=== PATIENT | male | born 1950 | race Caucasian/White ===

== ENCOUNTER 2016-11-03 12:52 | Emergency (ER) | payer OTHER ==
[~2016-11-03] VITALS: Ht 175.3 cm; Wt 91.4 kg
[2016-11-03 12:56] VITALS: TEMP 97.8
[2016-11-03 13:21] LABS: BASO # 0.1 (0.0-0.2); BASO % 0.6 % (0.0-2.0); EOS % 0.5 % (0-4.0); GRAN # 7.3 (1.4-6.5); GRAN % 83.1 % (42.2-75.2); HEMATOCRIT 47.4 % (42.0-52.0); LYMPH # 0.7 (1.2-3.4); LYMPH % 8.3 % (20.0-51.0); MEAN CELL VOLUME 94 fl (80.0-100.0); MEAN CORPUSCULAR HEMOGLOBIN 32 pg (27.0-31.0); MEAN CORPUSCULAR HGB CONC 34 g/dl (33.0-37.0); MONO # 0.6 (0.1-0.6); MONO % 6.9 % (1.7-9.3); PLATELET COUNT 243 K/mm3 (130-400); RED BLOOD COUNT 5.02 M/mm3 (4.20-5.60); REDCELL DISTRIBUTION WIDTH-CV 12.6 % (11.5-14.5); WHITE BLOOD COUNT 8.8 K/mm3 (4.8-10.8)
[2016-11-03 13:31] LABS: ADJUSTED CALCIUM 9.4 mg/dL (8.4-10.2); ALANINE AMINOTRANSFERASE 34 U/L (21-72); ALBUMIN 4.1 gm/dL (3.5-5.0); ALKALINE PHOSPHATASE 69 U/L (50-136); ANION GAP 9 mmol/L (7-16); BILIRUBIN,TOTAL 1.3 mg/dL (0.0-1.0); BLOOD UREA NITROGEN 22 mg/dL (9-20); CALCIUM 9.5 mg/dL (8.4-10.2); CARBON DIOXIDE 26 mmol/L (22-30); CHLORIDE 104 mmol/L (98-107); CREATININE, serum 1.09 mg/dL (0.66-1.25); GLUCOSE 106 mg/dL (74-106); LIPASE 79 U/L (23-300); POTASSIUM 4.7 mmol/L (3.4-5.0); SODIUM 138 mmol/L (137-145); TOTAL PROTEIN 7.3 gm/dL (6.4-8.2)
[2016-11-03] MEDS ORDERED: ANTIVERT 25MG25 MG PO (13:33)
[2016-11-03] MEDS ORDERED: MIRAPEX0.25 MG PO (13:34)
[2016-11-03 13:35] LABS: PH 5 (5-8); SQUAMOUS EPITHELIAL None Seen /hpf; URINE APPEARANCE Clear; URINE BACTERIA None Seen /hpf; URINE BILIRUBIN Negative (NEGATIVE); URINE BLOOD Negative (NEGATIVE); URINE COLOR Yellow; URINE GLUCOSE Negative (NEGATIVE); URINE KETONE Negative (NEGATIVE); URINE RBC 0-2 /hpf; URINE UROBILINOGEN Negative (NEGATIVE); URINE WBC 0-2 /hpf
[2016-11-03] MEDS ORDERED: LIPITOR 10MG10 MG PO (13:35)
[2016-11-03] MEDS ORDERED: MOBIC 7.5MG7.5 MG PO (13:35)
[2016-11-03 13:44] LABS: TROPONIN-I < 0.012 ng/mL (0.000-0.034)
[2016-11-03] MEDS ORDERED: VALIUM 5MG T5 MG/TAB PO (14:53)
[2016-11-03 15:16] VITALS: BP 124/79; PULSE 61
== END 2016-11-03 15:39 | disposition home or self-care (01) ==
LOC: COL.ER 12:52
PROVIDERS: Emergency Medicine
DX: R42 Dizziness and giddiness (principal)

== ENCOUNTER → 2016-11-21 | Outpatient (CLI) | payer OTHER ==
[~2016-11-21] MED LIST: ANTIVERT 25MG25 MG PO; LIPITOR 10MG10 MG PO; MIRAPEX0.25 MG PO; MOBIC 7.5MG7.5 MG PO; VALIUM 5MG T5 MG/TAB PO
== END ==
LOC: COL.RAD 09:36
DX: K76.0 Fatty (change of) liver, not elsewhere classified (principal); K80.20 Calculus of gallbladder without cholecystitis without obstruction; R27.0 Ataxia, unspecified

== ENCOUNTER → 2017-11-18 | Outpatient (CLI) | payer BC | LOC: COL.RAD 12:04 | DX: M19.011 Primary osteoarthritis, right shoulder (principal); S46.811A Strain of other muscles, fascia and tendons at shoulder and upper arm level, right arm, initial encounter; S43.491A Other sprain of right shoulder joint, initial encounter ==

== ENCOUNTER 2023-04-08 21:39 | Emergency (ER) | payer MEDICARE, BC ==
[~2023-04-08] VITALS: Ht 180.3 cm; Wt 95.5 kg
[~2023-04-08 21:39] MED LIST changes: +NEURONTIN100 MG/CAP PO
[2023-04-08] MEDS ORDERED: NS 1,000 ML IV ONE (23:30)
[2023-04-08 23:39] LABS: HEMOGLOBIN 14.5 g/dl (13.5-18.0); MEAN CELL VOLUME 96 fl (80.0-100.0); MEAN CORPUSCULAR HEMOGLOBIN 32 pg (27-31); MEAN CORPUSCULAR HGB CONC 34 g/dl (33.0-37.0); MEAN PLATELET VOLUME 9.1 fl (7.4-10.4); PLATELET COUNT 226 K/mm3 (130-400); RED BLOOD COUNT 4.48 M/mm3 (4.20-5.60); REDCELL DISTRIBUTION WIDTH-CV 12.7 % (11.5-14.5)
[2023-04-08 23:51] LABS: ALANINE AMINOTRANSFERASE 13 U/L (0-55); ALBUMIN 3.2 gm/dL (3.4-4.8); ALKALINE PHOSPHATASE 74 U/L (40-150); ANION GAP 10 mmol/L (7-16); AST,SGOT 31 U/L (5-34); BILIRUBIN,TOTAL 2.2 mg/dL (0.2-1.2); BLOOD UREA NITROGEN 24 mg/dL (8-26); C-REACTIVE PROTEIN 20.17 mg/dL (0.00-0.50); CALCIUM 9.8 mg/dL (8.4-10.2); CARBON DIOXIDE 24 mmol/L (23-31); CHLORIDE 103 mmol/L (98-107); CREATININE, serum 1.49 mg/dL (0.72-1.25); GLUCOSE 103 mg/dL (70-99); POTASSIUM 4.1 mmol/L (3.5-4.5); SODIUM 137 mmol/L (136-145); TOTAL PROTEIN 6.6 gm/dL (6.2-8.1)
[2023-04-08 23:57] LABS: TROPONIN-I < 0.010 ng/mL (0.00-0.033)
[2023-04-09 00:13] LABS: HYPOCHROMIA 1+; LYMPHOCYTE 5 % (20.0-51.0); NEUTROPHILS 82 % (42.0-75.2); PLATELET ESTIMATE NORMAL (NORMAL)
[2023-04-09] MEDS ORDERED: fentaNYL 50 MCG/ML 2 ML VIAL IV ONE (00:45)
[2023-04-09 01:06] LABS: COLLECTION METHOD CLEAN CATCH
[2023-04-09 01:17] LABS: URINE APPEARANCE Clear (CLEAR/HAZY); URINE COLOR Yellow (YELLOW)
[2023-04-09 01:18] LABS: MUCOUS Present (NOT PRESENT); PH 5.5 (5.0-8.5); SQUAMOUS EPITHELIAL 0-2 /hpf (0-10); URINE BACTERIA Rare /hpf (NONE SEEN); URINE BLOOD Negative (NEGATIVE); URINE GLUCOSE Negative (NEGATIVE); URINE KETONE TRACE (NEGATIVE); URINE NITRATE Negative (NEGATIVE); URINE PROTEIN(semi-quant) Negative (BEGATIVE); URINE RBC 0-2 /hpf (0-2); URINE UROBILINOGEN 0.2 E.U/dL (0.2-1.0)
[2023-04-09 01:43] VITALS: TEMP 98.2
[2023-04-09 03:05] VITALS: BP 154/88; PULSE 90
== END 2023-04-09 03:07 | disposition home or self-care (01) ==
LOC: COL.ER 21:39
PROVIDERS: Nurse Practitioner
DX: R50.9 Fever, unspecified (principal); R11.2 Nausea with vomiting, unspecified
CPT/HCPCS: J3010; J7030

== ENCOUNTER 2023-12-30 11:54 | Outpatient (CLI) | payer MEDICARE, BC ==
[~2023-12-30] VITALS: Ht 180.3 cm; Wt 91.9 kg
[~2023-12-30 11:54] MED LIST changes: +ARICEPT 5MG PO; +B-12 500 MCG PO; +CENTRUM MEN'S PO; +FOLIC ACID0.8 MG PO; +MAGNESIUM CITR100 MG PO; +MASON NATURAL2000 IU PO; +MIRAPEX 1MG PO; +PRILOSEC 20MG20 MG PO; +ZETIA 10MG TAB10 MG PO; +ZOLOFT 25MG25 MG PO
[2023-12-30] MEDS ORDERED: ZOCOR 20MG20 MG PO (12:09)
[2023-12-30] MEDS ORDERED: FLOMAX 0.40.4 MG/CAP PO (12:10)
[2023-12-30 12:14] VITALS: BP 131/74; PULSE 56; TEMP 97.5
[2023-12-30 13:41] VITALS: BP 124/73; PULSE 51
[2023-12-30 13:45] VITALS: BP 119/68; PULSE 50
[2023-12-30 14:00] VITALS: BP 123/71; PULSE 50
[2023-12-30 14:15] VITALS: BP 104/61; PULSE 52
[2023-12-30 14:30] VITALS: BP 111/60; PULSE 53
--- NOTE | 2023-12-30 14:49 | NUR ---
DC instructions reviewed with pt and . Both express understanding. Pt has slept during recovery period, has woken easily when staff enters room. Continues to deny headache or other concerns. Bandaids remains clean, dry and intact. Pt is assisted out to 's car by wheelchair. Free of complaints at discharge.
[2023-12-30 15:18] LABS: TOTAL PROTEIN,CSF 45 mg/dL (15-45)
[2023-12-30 16:10] LABS: CSF APPEARANCE CLEAR; CSF COLOR COLORLESS; CSF RBC 238 /mm3 (0-0)
[2023-12-30 16:15] LABS: CSF MONONUCLEAR 0 % (70-100); CSF POLYMORPHONUCLEAR 100 % (0-6)
[2024-01-02 05:38] LABS: CADMIUM BLOOD 0.7 ug/L (0.0-1.2); LEAD,SERUM** 1.1 ug/dL (0.0-3.4); MERCURY,SERUM <1.0 ug/L (0.0-14.9)
== END 2023-12-30 14:49 | disposition home or self-care (01) ==
LOC: COL.RAD 11:54
PROVIDERS: Family Medicine
DX: G43.909 Migraine, unspecified, not intractable, without status migrainosus (principal); F03.90 Unspecified dementia, unspecified severity, without behavioral disturbance, psychotic disturbance, mood disturbance, and anxiety